=== PATIENT | female | born 1960 | race Caucasian/White ===

== ENCOUNTER 2016-12-11 01:36 | Emergency (ER) | payer OTHER ==
[~2016-12-11] VITALS: Ht 175.3 cm; Wt 86.6 kg
[~2016-12-11 01:36] MED LIST: BENTYL20 MG PO; CIPRO500 MG PO; TRAMADOL HCL50 MG PO; ZOFRAN ODT8 MG PO
[2016-12-11 04:57] LABS: ADD MIUA? YES; BILIRUBIN NEGATIVE; BLOOD MODERATE; COLOR YELLOW ((YELLOW)); GLUCOSE (STRIP) NEGATIVE; KETONES NEGATIVE; LEUKOCYTES NEGATIVE; NITRITE NEGATIVE; PROTEIN (STRIP) 30
[2016-12-11 05:06] LABS: BACTERIA RARE /HPF; EPITHELIAL CELLS RARE /HPF; MUCUS TRACE /LPF; UCUL ADDED? NO; WHITE BLOOD CELLS 0-5 /HPF (0-5)
[2016-12-11 06:06] LABS: HEMATOCRIT 41.4 % (36.0-46.0); MCH 28.9 PG (29.0-34.0); MCHC 31.9 G/DL (30.0-36.0); MCV 90.6 FL (83-99); PLATELET COUNT 251 K/uL (156-360); RBC DIS.WIDTH-CV 13.1 % (11.8-14.6); RBC DIS.WIDTH-SD 43.2 % (39-53); RED BLOOD COUNT 4.57 M/uL (3.80-5.20); WHITE BLOOD COUNT 10.8 K/uL (4.1-10.2)
[2016-12-11 06:16] LABS: CHLORIDE 107 mEq/L (99-109); POTASSIUM 3.3 mEq/L (3.7-5.4); SODIUM 142 mEq/L (136-147)
[2016-12-11 06:19] LABS: GLUCOSE 128 mg/dL (70-99)
[2016-12-11 06:20] LABS: ANION GAP 10 MEQ/L (2-14)
[2016-12-11 06:21] LABS: TOTAL BILIRUBIN 1.9 mg/dL (0.0-1.0)
[2016-12-11 06:22] LABS: ALKALINE PHOSPHATASE 123 IU/L (3-129); GFR ESTIMATE (CALCULATED) > 59 mL/min/
[2016-12-11 06:23] LABS: UREA NITROGEN (BUN) 18 mg/dL (9-23)
[2016-12-11 06:26] LABS: LIPASE 35 U/L (1.0-51.0)
[2016-12-11] MEDS ORDERED: FLUOXETINE HCL20 M1 PO (06:29)
[2016-12-11] MEDS ORDERED: SUMATRIPTAN SUC50 MG PO (06:30)
[2016-12-11] MEDS ORDERED: PERCOCET 5/31 TABLET PO (09:57)
[2016-12-11] MEDS ORDERED: ZOFRAN ODT4 MG PO (09:57)
[2016-12-11 10:20] VITALS: BP 115/55
== END 2016-12-11 10:20 | disposition home or self-care (01) ==
LOC: EXP 01:36 → EME 01:36 → EXP 10:20
PROVIDERS: Physician Assistant
DX: K80.70 Calculus of gallbladder and bile duct without cholecystitis without obstruction (principal); R31.9 Hematuria, unspecified; R79.89 Other specified abnormal findings of blood chemistry; M54.2 Cervicalgia; R07.81 Pleurodynia; K76.89 Other specified diseases of liver; D72.829 Elevated white blood cell count, unspecified; Z90.710 Acquired absence of both cervix and uterus
CPT/HCPCS: 71020; 74176; 76705; 80053; 81003; 83690; 85027; 99281; 99285; J3010

== ENCOUNTER 2016-12-28 11:26 | Observation (INO) | payer OTHER ==
[~2016-12-28] VITALS: Ht 175.3 cm; Wt 82.1 kg
[~2016-12-28 11:26] MED LIST changes: +FLUOXETINE HCL20 M1 PO; +PERCOCET 5/31 TABLET PO; +SUMATRIPTAN SUC50 MG PO; +ZOFRAN ODT4 MG PO
[2016-12-28 12:50] LABS: ADD MIUA? YES; BILIRUBIN NEGATIVE; BLOOD NEGATIVE; COLOR YELLOW ((YELLOW)); GLUCOSE (STRIP) NEGATIVE; KETONES NEGATIVE; LEUKOCYTES MODERATE; NITRITE NEGATIVE; PROTEIN (STRIP) 30; UROBILINOGEN 0.2 MG/DL (0.2-1.0)
[2016-12-28 12:50] LABS: HEMATOCRIT 40.4 % (36.0-46.0); MCH 29.8 PG (29.0-34.0); MCHC 32.4 G/DL (30.0-36.0); MCV 91.8 FL (83-99); PLATELET COUNT 351 K/uL (156-360); RBC DIS.WIDTH-CV 13.7 % (11.8-14.6); RBC DIS.WIDTH-SD 46.4 % (39-53)
[2016-12-28 12:59] LABS: CHLORIDE 107 mEq/L (99-109); POTASSIUM 3.4 mEq/L (3.7-5.4); SODIUM 144 mEq/L (136-147)
[2016-12-28 12:59] LABS: BACTERIA RARE /HPF; EPITHELIAL CELLS RARE /HPF; MUCUS TRACE /LPF; UCUL ADDED? YES; WHITE BLOOD CELLS 15-20 /HPF (0-5)
[2016-12-28 13:02] LABS: GLUCOSE 98 mg/dL (70-99)
[2016-12-28 13:03] LABS: ANION GAP 12 MEQ/L (2-14); TOTAL BILIRUBIN 1.2 mg/dL (0.0-1.0)
[2016-12-28 13:05] LABS: ALKALINE PHOSPHATASE 189 IU/L (3-129); GFR ESTIMATE (CALCULATED) > 59 mL/min/
[2016-12-28 13:06] LABS: UREA NITROGEN (BUN) 16 mg/dL (9-23)
[2016-12-28 13:09] LABS: LIPASE 26 U/L (1.0-51.0)
[2016-12-28] MEDS ORDERED: NEXIUM20 MG PO (15:15)
[2016-12-28] MEDS ORDERED: ATIVAN0.5 MG PO (15:15)
[2016-12-28] MEDS ORDERED: ZOFRAN ODT4 MG PO (15:17)
[2016-12-28 16:46] VITALS: BP 135/62
[2016-12-28 20:44] VITALS: BP 139/66
[2016-12-28 23:43] VITALS: BP 140/66
[2016-12-29 04:18] VITALS: BP 120/57
[2016-12-29 06:48] LABS: HEMATOCRIT 37.1 % (36.0-46.0); MCH 29.7 PG (29.0-34.0); MCHC 32.6 G/DL (30.0-36.0); MCV 91.2 FL (83-99); MEAN PLAT.VOLUME 11.2 uM^3 (9.5-12.4); PLATELET COUNT 289 K/uL (156-360); RBC DIS.WIDTH-CV 13.4 % (11.8-14.6); RBC DIS.WIDTH-SD 44.7 % (39-53); RED BLOOD COUNT 4.07 M/uL (3.80-5.20); WHITE BLOOD COUNT 8.1 K/uL (4.1-10.2)
[2016-12-29 07:08] LABS: ANION GAP 10 MEQ/L (2-14); CHLORIDE 110 MEQ/L (99-109); GFR ESTIMATE (CALCULATED) > 59 mL/min/; GLUCOSE 105 mg/dL (70-99); LIPASE 13 U/L (1.0-51.0); POTASSIUM 3.9 MEQ/L (3.7-5.4); SAMPLE HEMOLYSIS CHECK 0; SAMPLE ICTERIC CHECK 0; SAMPLE LIPEMIA CHECK 0; SODIUM 145 MEQ/L (136-147); UREA NITROGEN (BUN) 10 mg/dL (9-23)
[2016-12-29 07:09] LABS: ALKALINE PHOSPHATASE 150 IU/L (3-129); AMYLASE 42 IU/L (1-118); TOTAL BILIRUBIN 1.4 MG/DL (0.0-1.0)
[2016-12-29 07:52] VITALS: BP 111/56
[2016-12-29 11:35] VITALS: BP 131/60
[2016-12-29] MEDS ORDERED: CIPRO500 MG PO (13:45)
== END 2016-12-29 14:47 | disposition home or self-care (01) ==
LOC: EME 11:26 → EDOF 14:45 → 2EAST 14:45 → ENRESERV 15:00 → 2EAST 16:35 → EME 18:00 → 2EAST 12-29 14:47
PROVIDERS: Internal Medicine Gastroenterology
DX: K80.60 Calculus of gallbladder and bile duct with cholecystitis, unspecified, without obstruction (principal); K80.50 Calculus of bile duct without cholangitis or cholecystitis without obstruction; R17 Unspecified jaundice; E87.6 Hypokalemia; R94.31 Abnormal electrocardiogram [ECG] [EKG]; Z88.8 Allergy status to other drugs, medicaments and biological substances
CPT/HCPCS: 74328; 80053; 81003; 82150; 83690; 85027; 87081; 87086; 93005; 93306; 99281; 99285; C1757; C1769; G0378; J0330; J0744; J1650; J3010; J3480

== ENCOUNTER 2017-01-02 07:35 | Day surgery (SDC) | payer OTHER ==
[~2017-01-02] VITALS: Ht 175.3 cm; Wt 82.1 kg
[~2017-01-02 07:35] MED LIST changes: +ATIVAN0.5 MG PO; +NEXIUM20 MG PO
[2017-01-02 08:02] VITALS: BP 135/64
[2017-01-02] MEDS ORDERED: COLACE100 MG PO (12:06)
[2017-01-02] MEDS ORDERED: PERCOCET 5/31 TABLET PO (12:06)
[2017-01-02 12:41] VITALS: BP 113/56
[2017-01-02 13:40] VITALS: BP 114/65
== END 2017-01-02 14:55 | disposition home or self-care (01) ==
LOC: SDC
PROC: 0FT44ZZ Resection of Gallbladder, Percutaneous Endoscopic Approach (ICD-10-PCS; principal; 2017-01-02)
DX: K80.12 Calculus of gallbladder with acute and chronic cholecystitis without obstruction (principal); F41.8 Other specified anxiety disorders; K21.9 Gastro-esophageal reflux disease without esophagitis; G43.909 Migraine, unspecified, not intractable, without status migrainosus; F41.0 Panic disorder [episodic paroxysmal anxiety]; Z80.7 Family history of other malignant neoplasms of lymphoid, hematopoietic and related tissues; Z82.49 Family history of ischemic heart disease and other diseases of the circulatory system; Z88.8 Allergy status to other drugs, medicaments and biological substances
CPT/HCPCS: 87070; 87075; 87077; 87186; 87205; 88304; J0131; J0690; J1100; J1170; J2250; J2405; J2710; J2765; J3010